=== PATIENT | female | born 1960 | race Caucasian/White ===

== ENCOUNTER 2018-07-28 10:25 | Day surgery (SDC) | payer OTHER ==
[~2018-07-28] VITALS: Ht 144.8 cm; Wt 72.3 kg
[2018-07-28] VITALS (13 sets, daily range): BP systolic 119–168; BP diastolic 66–76; PULSE 91–108; RESP 18–24; Ht 144.8 cm; Wt 72.3 kg
[2018-07-28] MEDS ORDERED: ACET-141 PO (11:06)
[2018-07-28] MEDS ORDERED: NAPR-688 PO (11:07)
--- NOTE | 2018-07-28 14:40 | PREAC ---
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 not on B-Lokesh Reported Medications Naproxen* (Naproxen*) 500 Mg Tablet, 500 MG PO BID PRN for PAIN AND/OR INFLAMMATION, TAB 07/28/18 Acetaminophen* (Acetaminophen*) 500 MG Extra Strength Tablet, 500 MG PO DAILY PRN for PAIN AND OR ELEVATED TEMP, TAB 07/28/18 Meds reviewed: Yes Allergies Coded Allergies: No Known Allergy (Unverified , 07/28/18) Allergies Reviewed: Yes Labs/Studies Labs Reviewed: Reviewed by anesthesiologist test: Negative Studies: ECG (SR) Pre-procedure Exam Last vitals Vital Signs Date Temp Pulse Resp B/P (MAP) Pulse Ox O2 O2 Flow FiO2 Time Delivery Rate 07/28/18 96.7 91 18 168/76 96 Room Air 11:27 (106) Airway: Adequate mouth opening Mallampati: Mallampati II Teeth: Normal Lung: Normal Heart: Normal ASA Physical Status ASA physical status: 2 Emergency: None Planned Anesthetic General/MAC: ETT, MAC Pre-operative Attestations Prior to commencing anesthesia and surgery, the patient was re-evaluated, there was verification of: *The patient's identity *The results of appropriate recent lab work and preoperative vital signs *The above evaluation not changing prior to induction *Anesthetic plan, risk benefits, alternative and complications discussed with patient/family; questions answered; patient/family understands, accepts and wishes to proceed. ANGEL GIRON Jul 28, 2018 14:40
[2018-07-28] MEDS ORDERED: PROPOFOL 100 ML ONE (15:24)
[2018-07-28] MEDS ORDERED: FENTAnyl 50 MCG/ML VIAL ONE ×2 (15:24→16:11)
[2018-07-28] MEDS ORDERED: MIDAZOLAM 1 MG/ML 2 ML INJ ONE (15:33)
[2018-07-28] MEDS ORDERED: BUPIVACAINE 0.25% (MPF) 30 ML INJ ONE (15:48)
[2018-07-28] MEDS ORDERED: LIDOCAINE 1% (MPF) 30 ML INJ ONE (15:48)
[2018-07-28] MEDS ORDERED: DEXAMETHASONE 4 MG/ML 5 ML INJ ONE (16:07)
[2018-07-28] MEDS ORDERED: ONDANSETRON 4 MG INJ ONE (16:07)
[2018-07-28] MEDS ORDERED: TRIAMCINOLONE ACET 40 MG/ML INJ ONE (16:12)
[2018-07-28] MEDS ORDERED: ONDANSETRON 4 MG INJ IV PRN (16:30)
[2018-07-28] MEDS ORDERED: METOCLOPRAMIDE 10 MG INJ IV PRN (16:30)
[2018-07-28] MEDS ORDERED: HYDROmorphONE 1 MG/5 ML IV SYRINGE IV PRN ×2 (16:30)
[2018-07-28] MEDS ORDERED: FENTAnyl 50 MCG/ML VIAL IV PRN ×2 (16:30)
[2018-07-28] MEDS ORDERED: MEPERIDINE 25 MG INJ IV PRN (16:30)
[2018-07-28] MEDS ORDERED: hydrALAzine 20 MG INJ IV PRN (16:30)
[2018-07-28] MEDS ORDERED: LABETALOL HCL 20MG INJ IV PRN (16:30)
--- NOTE | 2018-07-28 16:39 | OPR ---
Date/Time of Note Date/Time of Note DATE: 07/28/18 TIME: 16:37 Operative Report Preoperative Diagnosis Right ear hypertrophic scar Postoperative Diagnosis Same Operation/Procedure Performed Excision of right ear hypertrophic scar 3 cm Surgeon see signature line Decorating Inspector None Anesthesia Type: MAC Estimated Blood Loss: minimal Transfusion none Specimen Hypertrophic scar right ear Grafts/Implants none Complications none Pt Condition Post Procedure: stable Disposition: PACU Indications Patient developed a hypertrophic scar on her right ear where she previously had a cup. It was causing disfigurement and discomfort for which she is undergoing excision with the hope that it will heal. I explained to her that it may slightly disfigured her ear if I excised this and that the hypertrophic scar may recur. She understood these risks and asked to proceed with surgery. Procedure Description Patient was placed in a supine position. The right ear was prepped with ChloraPrep solution. She had about a 3 cm hypertrophic scar along the right ear posteriorly at the penile. This was excised with the use of the electrocautery on the cut setting the hypertrophic scar was fully excised taking all the collagen with it. Afterwards the skin of the ear was reapproximated with 3-0 nylon sutures. Kenalog was then instilled into the wound, instilling 40 mg which was 1 mL. Patient tolerated the procedure well and was disposition to PACU. The incision was covered with Dermabond solution. YOMAIRA KIRKPATRICK Jul 28, 2018 16:39
--- NOTE | 2018-07-28 16:54 | PAC ---
Date/Time of Note Date/Time of Note DATE: 07/28/18 TIME: 16:54 Post-Anesthesia Notes Post-Anesthesia Note Last documented vital signs Vital Signs Date Temp Pulse Resp B/P (MAP) Pulse Ox O2 O2 Flow FiO2 Time Delivery Rate 07/28/18 96.7 91 18 168/76 96 Room Air 11:27 (106) Activity: WNL Respiratory function: WNL Cardiovascular function: WNL Mental status: Baseline Pain reasonably controlled: Yes Hydration appropriate: Yes Nausea/Vomiting absent: Yes ANGEL GIRON Jul 28, 2018 16:54
[2018-07-28] MEDS ORDERED: HYDROCODONE/APAP (5/325) TAB PO PRN (17:00)
[2018-07-28] MEDS ORDERED: TRIAMCINOLONE ACET 40 MG/ML INJ IM ONE (17:30)
--- NOTE | 2018-07-29 15:33 | RADRPT ---
Vent Rate: 86 bpm RR Interval: 0 msec IN Interval: 152 msec QRS Duration: 90 msec QT Interval: 358 msec QTC Interval: 428 msec P-R-T Lamar: 33 - -4 - 18 degrees Normal sinus rhythm Possible Left atrial enlargement Borderline ECG Electronically Signed By: Vinh Barboza
== END 2018-07-28 18:11 | disposition home or self-care (01) ==
LOC: SDS 10:25
PROVIDERS: ATTEND Surgery Surgical Critical Care
DX: L91.0 Hypertrophic scar (principal); L90.5 Scar conditions and fibrosis of skin
CPT/HCPCS: 11443; 88304; 93005; J1100; J2250; J2405; J3010; Z7512; Z7610